=== PATIENT | male | born 1955 | race African-American/Black ===

== ENCOUNTER 2020-10-02 15:00 | Emergency (ER) | payer BC ==
[2020-10-02 19:51] LABS: Absolute Lymphocytes (CBC) 2.4 K/uL (0.7-4.9); Basophils % 0.9 % (0-1.3); Lymphocytes % 25.9 % (15.3-44.8); MPV 8.6 fL (7.6-11.3); RBC Red Blood Cell Count 4.96 M/uL (4.33-5.43)
--- NOTE | 2020-10-02 20:12 | RAD REPORT ---
EXAM DESCRIPTION: RAD - Chest Single View - 10/02/2020 7:59 pm CLINICAL HISTORY: CHEST PAIN COMPARISON: September 2008 TECHNIQUE: AP portable chest image was obtained 10/02/2020 7:59 pm . FINDINGS: Lungs are clear. Heart and vasculature are normal. No measurable pleural effusion and no p neumothorax. No acute bony abnormality seen. No acute aortic findings suspected. IMPRESSION: No acute cardiopulmonary process. No significant change from comparison study.
[2020-10-02 22:17] LABS: ALT/SGPT 23 U/L (12-78); AST/SGOT 22 U/L (15-37); Albumin 3.8 g/dL (3.4-5.0); Alkaline Phosphatase 72 U/L (45-117); BUN Blood Urea Nitrogen 14 mg/dL (7-18); Bicarbonate 27 mmol/L (21-32); Bilirubin Direct 0.1 mg/dL (0-0.2); Bilirubin Total 0.5 mg/dL (0.2-1.0); Glucose Level 104 mg/dL (74-106); Magnesium 2.3 mg/dL (1.8-2.4); NT PRO-BNP 7 pg/mL (<125); Potassium 3.7 mmol/L (3.5-5.1); Protein, Total 7.6 g/dL (6.4-8.2); Sodium Level 141 mmol/L (136-145); Troponin (Emerg Dept Use Only) < 0.02 ng/mL (0.0-0.045)
--- NOTE | 2020-10-02 23:25 | EDPHYS ---
Physician Documentation [facility] Name: Kervin Osborn Age: 65 yrs Sex: Male : 1955 Arrival Date: 10/02/2020 Time: 15:02 Bed 25 Private MD: Gonzalo Matthews F ED Physician Dax Lowe HPI: 10/02 20:27 This 65 yrs old Black Male presents to ER via Ambulatory with complaints of Chest Pain. rn 20:28 The patient or guardian reports chest pain that is located primarily in the mid-sternal rn area. Onset: 3 day(s) ago. The pain does not radiate. Associated signs and symptoms: Pertinent positives: None. Pertinent negatives: abdominal pain, diaphoresis, dizziness, lower extremity swelling, near syncope, palpitations, shortness of breath, syncope, vomiting. The chest pain is described as aching. Duration: The patient or guardian reports multiple episodes, that are intermittent. Modifying factors: The symptoms are alleviated by nothing. the symptoms are aggravated by nothing. Severity of pain: At its worst the pain was mild in the emergency department the pain is unchanged. The patient has not experienced similar symptoms in the past. Sent by PCP for evaluation of chest pain, non-traumatic, no fever/cough/sob. Does not know what make sit worse or better. Intermittent, non-radiating, no abd pain. . Historical: - Allergies: 15:10 No Known Allergies; ca1 - PMHx: 15:10 Hypertension; ca1 - PSHx: 15:10 None; ca1 - Immunization history:: Flu vaccine is up to date. - Social history:: Smoking status: Patient denies any tobacco usage or history of. - Family history:: not pertinent. - Hospitalizations: : No recent hospitalization is reported. ROS: 20:28 Constitutional: Negative for fever, chills, and weight loss, Eyes: Negative for injury, rn pain, redness, and discharge, Neck: Negative for injury, pain, and swelling, Cardiovascular: Negative for palpitations, and edema, Respiratory: Negative for shortness of breath, cough, wheezing, and pleuritic chest pain, Abdomen/GI: Negative for abdominal pain, nausea, vomiting, diarrhea, and constipation, Back: Negative for injury and pain, MS/Extremity: Negative for injury and deformity, Skin: Negative for injury, rash, and discoloration, Neuro: Negative for headache, weakness, numbness, tingling, and seizure. Exam: 20:28 Constitutional: This is a well developed, well nourished patient who is awake, alert, rn and in no acute distress. Head/Face: Normocephalic, atraumatic. Neck: Trachea midline, no masses palpated, and no cervical lymphadenopathy. Chest/axilla: Normal chest wall appearance and motion. Nontender with no deformity. No lesions are appreciated. Cardiovascular: Regular rate and rhythm. No pulse deficits. Respiratory: No increased work of breathing, no retractions or nasal flaring. Abdomen/GI: Soft, non-tender Skin: Warm, dry MS/ Extremity: Pulses equal, no cyanosis. Neurovascular intact. Full, normal range of motion. Equal circumference. Neuro: Awake and alert, GCS 15, oriented to person, place, time, and situation. 20:53 ECG was reviewed by the Attending Physician. rn Vital Signs: 15:07 BP 132 / 85; Pulse 103; Resp 16 S; Temp 98.8(O); Pulse Ox 97% on R/A; Weight 77.56 kg ca1 (R); Height 5 ft. 5 in. (165.10 cm) (R); Pain 3/10; 19:10 BP 119 / 73; Pulse 91; Resp 20; Pulse Ox 98% ; sp 19:31 BP 118 / 80; Pulse 86; Resp 16; Pulse Ox 98% ; zb 20:30 BP 108 / 70; Pulse 84; Resp 16; Pulse Ox 97% on R/A; zb 21:30 BP 117 / 76; Pulse 81; Resp 16; Pulse Ox 97% on R/A; zb 22:00 BP 138 / 86; Pulse 84; Resp 16; Pulse Ox 97% on R/A; zb 23:00 BP 120 / 75; Pulse 75; Resp 16; Pulse Ox 98% on R/A; zb 23:40 BP 119 / 76; Pulse 78; Resp 18; Pulse Ox 97% on R/A; zb 15:07 Body Mass Index 28.46 (77.56 kg, 165.10 cm) ca1 MDM: 19:22 Patient medically screened. rn 23:23 Differential diagnosis: acute myocardial infarction, acute pericarditis, anxiety, chest rn wall pain, costochondritis, esophagitis, gastritis, gastroesophageal reflux disease (GERD), pleurisy, pneumonia, stable angina. Data reviewed: vital signs, nurses notes, lab test result(s), EKG, radiologic studies, plain films, and as a result, I will admit patient. Counseling: I had a detailed discussion with the patient and/or guardian regarding: the historical points, exam findings, and any diagnostic results supporting the discharge/admit diagnosis, lab results, radiology results, the need for further work-up and treatment in the hospital. Response to treatment: the patient's symptoms have markedly improved after treatment, and as a result, I will admit patient. Refusal of service: The patient/guardian displays adequate decision making capability and despite a detailed discussion of alternatives, benefits, risks, and consequences refuses: Admission to the hospital for further work-up and treatment. ED course: Recommended admission given no clear etiology of chest pain, patient does not want to be admitted, plans on f/u with pcp tomorrow and outpt stress test. Patient attributes pain to stress and possibly acid reflux. Risks of going home explained, understood, will dc home per patient's wishes. Spoke to him twice about being admitted for cardiac evaluation and still wants to go home.. 10/02 19:33 Order name: Basic Metabolic Panel; Complete Time: 22:27 rn 10/02 19:33 Order name: CBC with Diff rn 10/02 19:33 Order name: LFT's; Complete Time: 22:27 rn 10/02 19:33 Order name: Magnesium; Complete Time: 22:27 rn 10/02 19:33 Order name: NT PRO-BNP; Complete Time: 22:27 rn 10/02 19:33 Order name: Troponin (emerg Dept Use Only); Complete Time: 22:27 rn 10/02 15:10 Order name: EKG; Complete Time: 17:17 ca1 10/02 15:10 Order name: EKG - Nurse/Tech; Complete Time: 15:13 ca1 10/02 19:33 Order name: XRAY Chest (1 view) rn 10/02 19:33 Order name: Cardiac monitoring; Complete Time: 19:37 rn 10/02 19:33 Order name: IV Saline Lock; Complete Time: 19:37 rn 10/02 19:33 Order name: Labs collected and sent; Complete Time: 19:37 rn 10/02 19:52 Order name: CBC with Automated Diff; Complete Time: 21:01 EDHI 10/02 20:14 Order name: RAD EDHI 10/02 19:33 Order name: O2 Per Protocol; Complete Time: 19:37 rn 10/02 19:33 Order name: O2 Sat Monitoring; Complete Time: 19:37 rn EC:53 Rate is 80 beats/min. Rhythm is regular. QRS [place] is Normal. MN interval is normal. QRS rn interval is normal. QT interval is normal. No Q waves. T waves are Normal. No ST changes noted. Clinical impression: Normal ECG. Interpreted by me. Reviewed by me. Administered Medications: No medications were administered Disposition: 10/02/20 23:25 Discharged to Home. Impression: Chest pain, unspecified. - Condition is Stable. - Discharge Instructions: Nonspecific Chest Pain, Pain Without a Known Cause. - Medication Reconciliation Form, Thank You Letter, Antibiotic Education, Prescription Opioid Use form. - Follow up: Gonzalo Matthews MD; When: Tomorrow; Reason: Recheck today's complaints, Re-evaluation by your physician. Follow up: Jose Galvan MD; When: 2 - 3 days; Reason: Recheck today's complaints, Re-evaluation by your physician. - Problem is new. - Symptoms have improved. Signatures: Dispatcher [employer] [facility] Dax Lowe MD MD rn Acob, CHIVO Mendes RN, Z[place]or[place], RN RN zb Corrections: (The following items were deleted from the chart) 23:41 23:25 10/02/2020 23:25 Discharged to Home. Impression: Chest pain, unspecified. zb Condition is Stable. Forms are Medication Reconciliation Form, Thank You Letter, Antibiotic Education, Prescription Opioid Use. Follow up: Gonzalo Matthews; When: Tomorrow; Reason: Recheck today's complaints, Re-evaluation by your physician. Follow up: Jose Galvan; When: 2 - 3 days; Reason: Recheck today's complaints, Re-evaluation by your physician. Problem is new. Symptoms have improved. rn
--- NOTE | 2020-10-02 23:25 | ER ---
Nurse's Notes [facility] Name: Kervin Osborn Age: 65 yrs Sex: Male : 1955 Arrival Date: 10/02/2020 Time: 15:02 Bed 25 Private MD: Gonzalo Matthews F Diagnosis: Chest pain, unspecified Presentation: 10/02 15:07 Chief complaint: Patient states: Chest discomfort since /Friday. Was at the ca1 doctor's office and was sent to the ER. Coronavirus screen: Client denies travel out of the [place] in the last 14 days. At this time, the client does not indicate any symptoms associated with coronavirus-19. Ebola Screen: Patient negative for fever greater than or equal to 101.5 degrees Fahrenheit, and additional compatible Ebola Virus Disease symptoms Patient denies exposure to infectious person. Patient denies travel to an Ebola-affected area in the 21 days before illness onset. No symptoms or risks identified at this time. Initial Sepsis Screen: Does the patient meet any 2 criteria? No. Patient's initial sepsis screen is negative. Does the patient have a suspected source of infection? No. Patient's initial sepsis screen is negative. Risk Assessment: Do you want to hurt yourself or someone else? Patient reports no desire to harm self or others. Onset of symptoms was October 02, 2020. 15:07 Method Of Arrival: Ambulatory ca1 15:07 Acuity: NOEL 3 ca1 Historical: - Allergies: 15:10 No Known Allergies; ca1 - PMHx: 15:10 Hypertension; ca1 - PSHx: 15:10 None; ca1 - Immunization history:: Flu vaccine is up to date. - Social history:: Smoking status: Patient denies any tobacco usage or history of. - Family history:: not pertinent. - Hospitalizations: : No recent hospitalization is reported. Screenin:30 Abuse screen: Denies threats or abuse. Denies injuries from another. Nutritional zb screening: No deficits noted. Tuberculosis screening: No symptoms or risk factors identified. Fall Risk None identified. Assessment: 19:28 General: Appears in no apparent distress. comfortable, Behavior is calm, cooperative, zb appropriate for age. Pain: Complains of pain in diaphragm and left breast Pain does not radiate. Pain currently is 5 out of 10 on a pain scale. Quality of pain is described as aching, dull, Pain began 2-3 days ago. Neuro: Level of Consciousness is awake, alert, obeys commands, Oriented to person, place, time, situation, Reports headache. Cardiovascular: Reports chest pain, Denies diaphoresis, nausea, palpitations, shortness of breath, syncope, vomiting, Heart tones S1 S2 present Capillary refill < 3 seconds Patient's skin is warm and dry. Respiratory: Airway is patent Respiratory effort is even, unlabored, Respiratory pattern is regular, symmetrical, Breath sounds are clear bilaterally. GI: No signs and/or symptoms were reported involving the gastrointestinal system. : No signs and/or symptoms were reported regarding the genitourinary system. EENT: EENT: No deficits noted. Derm: Skin is intact, is healthy with good turgor, Skin is dry, Skin is normal, Skin temperature is warm. Musculoskeletal: Circulation, motion, and sensation intact. Capillary refill < 3 seconds, in bilateral fingers. Range of motion: intact in all extremities. 20:28 Reassessment: Patient appears in no apparent distress at this time. Patient and/or zb family updated on plan of care and expected duration. Pain level reassessed. Patient is alert, oriented x 3, equal unlabored respirations, skin warm/dry/pink. no changes at this time. pt lying quietly in bed. 21:28 Reassessment: Patient appears in no apparent distress at this time. Patient and/or zb family updated on plan of care and expected duration. Pain level reassessed. Patient is alert, oriented x 3, equal unlabored respirations, skin warm/dry/pink. waiting on results. 22:06 Reassessment: no changes patient waiting results. zb 23:00 Reassessment: Patient appears in no apparent distress at this time. Patient and/or zb family updated on plan of care and expected duration. Pain level reassessed. Patient is alert, oriented x 3, equal unlabored respirations, skin warm/dry/pink. pt continues to wait on results. 23:39 Reassessment: d/c instruction provider. patient gait even and steady. no questions at zb this time. Vital Signs: 15:07 BP 132 / 85; Pulse 103; Resp 16 S; Temp 98.8(O); Pulse Ox 97% on R/A; Weight 77.56 kg ca1 (R); Height 5 ft. 5 in. (165.10 cm) (R); Pain 3/10; 19:10 BP 119 / 73; Pulse 91; Resp 20; Pulse Ox 98% ; sp 19:31 BP 118 / 80; Pulse 86; Resp 16; Pulse Ox 98% ; zb 20:30 BP 108 / 70; Pulse 84; Resp 16; Pulse Ox 97% on R/A; zb 21:30 BP 117 / 76; Pulse 81; Resp 16; Pulse Ox 97% on R/A; zb 22:00 BP 138 / 86; Pulse 84; Resp 16; Pulse Ox 97% on R/A; zb 23:00 BP 120 / 75; Pulse 75; Resp 16; Pulse Ox 98% on R/A; zb 23:40 BP 119 / 76; Pulse 78; Resp 18; Pulse Ox 97% on R/A; zb 15:07 Body Mass Index 28.46 (77.56 kg, 165.10 cm) ca1 ED Course: 15:02 Patient arrived in ED. ag5 15:03 Gonzalo Matthews MD is Private Physician. ag5 15:09 Triage completed. ca1 15:10 Arm band placed on right wrist. EKG completed in triage. Results shown to MD. ca1 19:09 Elli Armstrong RN is Primary Nurse. zb 19:22 Dax Lowe MD is Attending Physician. rn 19:30 Patient has correct armband on for positive identification. gambling monitor on. Pulse zb ox on. NIBP on. Door closed. Noise minimized. 19:31 Inserted saline lock: 20 gauge in right antecubital area, using aseptic technique. zb Missed attempt(s): 20 gauge in right forearm. Patient maintains SpO2 saturation greater than 95% on room air. 20:18 RAD In Process Unspecified. EDMS 20:30 EKG done, by ED staff, reviewed by Dax Lowe MD. zb 23:24 Gonzalo Matthews MD is Referral Physician. rn 23:24 Jose Galvan MD is Referral Physician. rn 23:40 No provider procedures requiring assistance completed. IV discontinued, intact, zb bleeding controlled, No redness/swelling at site. Pressure dressing applied. Administered Medications: No medications were administered Outcome: 23:25 Discharge ordered by MD. rn 23:41 Discharged to home ambulatory. aguila 23:41 Condition: stable 23:41 Discharge instructions given to patient, Instructed on discharge instructions, follow up and referral plans. Demonstrated understanding of instructions, follow-up care. 23:41 Patient left the ED. aguila Signatures: Dispatcher [employer] EDMS Shelby Hayes Roman, MD MD rn Acob, Cheryl, RN RN [facility] Duyen Casanova 5 Elli Armstrong RN RN zb
--- NOTE | 2020-10-03 12:54 | EKG ---
Test Date: 2020-10-02 Test Time: 20:22:34 Child Support Specialist: KVNG MEASUREMENT RESULTS: Intervals: Rate: 80 GA: 150 QRSD: 84 QT: 382 QTc: 440 [place]: P: 65 GA: 150 QRS: 71 T: 53 INTERPRETIVE STATEMENTS: Normal sinus rhythm Normal ECG Compared to ECG 10/02/2020 15:12:50 ST (T wave) deviation no longer present Possible ischemia no longer present Electronically Signed On 10-03-20 12:53:09 SEAM RUBBING MACHINE OPERATOR by Jose Galvan
--- NOTE | 2020-10-03 12:56 | EKG ---
Test Date: 2020-10-02 Test Time: 15:12:50 Slot Tag Inserter: LUIS ALFREDO MEASUREMENT RESULTS: Intervals: Rate: 94 TN: 140 QRSD: 92 QT: 344 QTc: 430 [place]: P: 78 TN: 140 QRS: 81 T: -31 INTERPRETIVE STATEMENTS: Normal sinus rhythm ST & T wave abnormality, consider inferior ischemia Abnormal ECG No previous ECG available for comparison Electronically Signed On 10-03-20 12:53:32 TWIST TESTER by Jose Galvan
== END 2020-10-02 23:41 | disposition home or self-care (01) ==
LOC: ER 15:00
DX: R07.9 Chest pain, unspecified (principal)
CPT/HCPCS: 36415; 71045; 80048; 80076; 83735; 83880; 84484; 85025; 93005; 99285